=== PATIENT | male | born 1960 | race Caucasian/White ===

== ENCOUNTER → 2021-07-16 09:49 | Outpatient (CLI) | payer OTHER, MEDICAID, SELFPAY ==
[2021-07-16 10:54] LABS: COVID19 -Nasal RAPID Negative (Negative)
--- NOTE | 2021-07-16 15:18 | PM.TREADMILL ---
Cardiac Stress Test Report Referral & Results Indication: PRE OP CLEARANCE Rest ECG: SINUS RHYTHM Procedure Note: NM OFELIA SCAN Impression: AFTER OFELIA INJ PATIENT HAD MINIMAL DYSPNEA, NO CHEST DISCOMFORT, BASELINE ECG SINUS RHYTHM, NON SPECIFIC ST ABNORMALITIES; NO SIGNIFICANT ST CHANGES AFTER OFELIA INJ COMPARED TO BASELINE ECG. RARE PAC AND PVC NOTED. NO AMINOPH NEEDED. MIBI SCAN PENDING, OFFICE SUPPORT ASSISTANT TO REVIEW. MARLEY CAMPUZANO. Please note: Actual ECG tracings can be found in the PACS system.
--- NOTE | 2021-07-16 18:51 | DI.NM.S_ITS ---
DATE OF SERVICE: 07/16/2021 PROCEDURE PERFORMED: Pharmacologic vasodilator stress and rest myocardial perfusion imaging with gating to assess ejection fraction and regional wall motion. INDICATIONS: The patient is a 61-year-old male with a reported previous [place] who requires presurgical evaluation. ORDERING PROVIDER: Dr. Charles Henson. PHARMACOLOGIC STRESS: Per protocol, 0.4 mg of regadenoson was infused with a normal hemodynamic response. He had minimal dyspnea and no chest discomfort. His resting ECG shows sinus rhythm with normal ST segments. There were no significant ST-segment shifts with stress. There were no arrhythmias. Per protocol, 25.6 millicuries of technetium-99m Myoview was injected and he was imaged 10 minutes later using a gated SPECT acquisition protocol. Earlier in the day while at rest, he had been injected with 11.7 millicuries of technetium- 99m Myoview and was imaged 20 minutes later, again using a gated SPECT acquisition protocol. FINDINGS: 1. Raw data: There is fair myocardial tracer uptake with a moderate amount of motion noted on both stress and rest images, more so on the stress images, which can introduce artifact. The lung/heart ratio is normal at 0.37. The TID ratio is normal at 0.90. 2. Quantitated gated SPECT: Post-stress ejection fraction is estimated at 72% without any focal wall motion abnormality. The resting ejection fraction is estimated at 67% with a normal resting end-diastolic volume of 89 mL. 3. Myocardial perfusion imaging: Post-stress supine images shows a fairly normal myocardial perfusion pattern although there is some subdiaphragmatic activity adjacent to the inferior wall which complicates the interpretation. However, the prone images are of excellent quality and show no perfusion defects. The resting images are of somewhat worse image quality and show an inferior perfusion defect, but there are no areas of significant improvement. IMPRESSION: 1. Normal myocardial perfusion study. 2. Probable mild diaphragmatic attenuation artifact but no evidence for significant myocardial ischemia or previous myocardial infarction. 3. Normal left ventricular systolic function without any focal wall motion abnormality. 4. No angina or ECG evidence of ischemia with pharmacologic vasodilator stress. ARGENTINA ANG - TIFFANI/anatoly/francie doc#: [id number]/job#: [id number] dd: 07/16/2021 17:51:00 dt: 07/16/2021 18:32:00 DICTATING MD/COPIES TO: Sammy Jackson MD; Charles Henson MD COPIES MNE: SULEMA;
== END ==
PROVIDERS: Specialist; PCP Internal Medicine; Referring Provider Internal Medicine; Visit Provider Internal Medicine
DX: I25.10 Atherosclerotic heart disease of native coronary artery without angina pectoris (principal); Z01.810 Encounter for preprocedural cardiovascular examination
CPT/HCPCS: 78452; 87635; 93017; A9502; J2785

== ENCOUNTER → 2021-07-21 09:57 | Outpatient (CLI) | payer OTHER, MEDICAID, SELFPAY ==
[2021-07-21 12:08] LABS: COVID19 -Nasal RAPID Negative (Negative)
== END ==
PROVIDERS: PCP Internal Medicine; Visit Provider Nurse Practitioner Family
DX: Z20.822 Contact with and (suspected) exposure to COVID-19 (principal)
CPT/HCPCS: 87635; C9803

== ENCOUNTER → 2021-11-11 08:14 | Outpatient (CLI) | payer OTHER, MEDICAID, SELFPAY ==
--- NOTE | 2021-11-11 | DI.ECHO.S_ITS ---
[facility] +---------+ [facility] +---------+ : : [address] : [place] : : : : [id number] : : : : Phone: [phone]+ Echocardiogram Report + + :Name: ARGENTINA ANG Study Date: 11/11/2021 Height: 64 in : :[facility] ReadingLocation: Weight: 180 lb : : Gender: Male BSA: 1.9 m2 : :: 1960 Age: 61 yrs BP: 129/82 mmHg: :Reason For Study: ATHEROSCLEROTIC HEART DISEASE : :Ordering Physician: MARK, : :CELESTINA Performed By: Indira Ty : :Referring: CELESTINA FLORES : + + Interpretation Summary The left ventricle is normal in size and wall thickness. The ejection fraction is estimated to be 55-60%. The right ventricle is normal in size and function. No significant valvular pathology seen. The IVC is of normal diameter and collapses greater than 50% with a sniff. This suggests a low right atrial pressure of 3 mm Hg. Mild atherosclerotic plaque(s) in the aortic arch. Procedure: A two-dimensional transthoracic echocardiogram with color flow and Doppler was performed. The study quality was technically adequate. There is no prior echocardiogram noted for this patient. The patient was in sinus rhythm with heart rates between 65-75 bpm during the exam. Left Ventricle: The left ventricle is normal in size and wall thickness. There is no thrombus. The ejection fraction is estimated to be 55-60%. There is basal inferior wall hypokinesis. Diastolic parameters suggest a relaxation abnormality of the left ventricle, consistent with probable normal filling pressures. Right Ventricle: The right ventricle is normal in size and function. Atria: Both atria are normal in size. The interatrial septum grossly appears intact with no obvious evidence for an atrial septal defect. Mitral Valve: There is mild mitral annular calcification. The mitral valve leaflets are slightly calcified. There is trace mitral regurgitation. Aortic Valve: The aortic valve is trileaflet. The aortic valve opens well. The aortic valve is slightly calcified. There is no aortic valve stenosis. No aortic regurgitation is present. Tricuspid Valve: The tricuspid valve is normal in structure and function. There is trace tricuspid regurgitation. Pulmonary artery pressures cannot be estimated because of the lack of a measurable TR jet velocity. Pulmonic Valve: The pulmonic valve is not well seen, but is grossly normal. There is no pulmonic valvular regurgitation. Great Vessels: The aortic root is normal size. The dimensions of the ascending aorta are normal. Mild atherosclerotic plaque(s) in the aortic arch. The IVC is of normal diameter and collapses greater than 50% with a sniff. This suggests a low right atrial pressure of 3 mm Hg. Pericardium/ Pleura There is no pericardial effusion. There is no pleural effusion. MMode/2D Measurements & Calculations LVIDd: 3.9 cm LVOT diam: 2.1 cm LVIDs: 3.0 cm Ao root diam: 3.9 cm FS: 23.3 % asc Aorta Diam: 3.7 cm EPSS: 1.5 cm Ao Arch Diam (Prox Trans): 2.6 cm IVSd: 0.95 cm LVPWd: 0.91 cm LV boggs. diameter/BSA (cm/m^2): 2.1 LV sys. diameter/BSA (cm/m^2): 1.6 LA A2 area: 16.8 cm2 RA long axis: 4.0 cm LA A4 area: 11.6 cm2 RA area: 12.1 cm2 LA length (vol): 4.4 cm RA vol: 30.7 ml LA vol: 37.9 ml RA : 16.4 ml/m2 LA vol index: 20.2 ml/m2 IVC diam: 1.1 cm RVD1 (basal): 3.4 cm RVD2 (mid): 2.6 cm TAPSE: 1.8 cm Doppler Measurements & Calculations Ao V2 max: 110.8 cm/sec LVOT Max Kartik: 81.6 cm/sec Ao V2 mean: 70.3 cm/sec LV V1 max P.7 mmHg Ao max P.9 mmHg LV V1 VTI: 16.7 cm Ao mean P.3 mmHg KATIE(I,D): 2.7 cm2 Ao V2 VTI: 21.3 cm KATIE(V,D): 2.6 cm2 sev ratio: 0.78 KATIE indexed to BSA (cm^2/m^2): 1.5 MV E max kartik: 52.1 cm/sec PA V2 max: 88.8 cm/sec MV A max kartik: 80.7 cm/sec PA V2 mean: 57.1 cm/sec MV E/A: 0.65 PA mean P.5 mmHg Med Peak E' Kartik: 5.6 cm/sec PA Accel Time: 0.10 sec E/E' med: 9.3 Lat Peak E' Kartik: 8.4 cm/sec E/E' lat: 6.2 E/e' average: 7.8 MV dec time: 0.32 sec [facility] 58.4 ml Reading Physician:07:48 PM
== END ==
PROVIDERS: PCP Internal Medicine; Referring Provider Internal Medicine Cardiovascular Disease; Visit Provider Internal Medicine Cardiovascular Disease
DX: I70.0 Atherosclerosis of aorta (principal); I25.10 Atherosclerotic heart disease of native coronary artery without angina pectoris
CPT/HCPCS: 93306